=== PATIENT | male | born 1975 | race Caucasian/White ===

== ENCOUNTER 2017-10-22 10:10 | Emergency (ER) | payer OTHER ==
[~2017-10-22] VITALS: Wt 116.1 kg
[~2017-10-22 10:10] MED LIST: LIPITOR20 MG PO; LISINOPRIL10 M1 PO; MOTRIN800 MG PO; NAPROXEN500 MG PO; PANTOPRAZOLE SO40 MG PO
[2017-10-22 10:49] LABS: BASO # 0.1 10*3/uL (0.0-0.1); BASO % 0.8 % (0.0-1.0); EOS # 0.2 10*3/uL (0.0-0.4); EOS % 2.8 % (1.0-4.0); HEMATOCRIT 48.9 % (42.0-52.0); HEMOGLOBIN 16.2 g/dl (14.0-18.0); LYMPH % 32.6 % (27.0-41.0); MEAN CELL VOLUME 95.3 fl (80.0-94.0); MEAN CORPUSCULAR HGB 31.6 pg (27.0-31.0); MEAN CORPUSCULAR HGB CONC 33.1 g/dl (33.0-37.0); MEAN PLATELET VOLUME 10.4 fl (9.6-12.3); MONO # 0.7 10*3/uL (0.1-1.0); MONO % 10.7 % (3.0-9.0); NEUT # 3.2 10*3/uL (2.3-7.9); NEUT % 52.8 % (47.0-73.0); PLATELET COUNT AUTOMATED 236 10*3/uL (130-400); RED BLOOD COUNT 5.13 10*6/uL (4.50-5.90); RED CELL DISTRI WIDTH 12.3 % (0-14.5); WHITE BLOOD COUNT 6.1 10*3/uL (4.8-10.8)
[2017-10-22 10:59] LABS: ALKALINE PHOSPHATASE 82 U/L (45-117); BUN 12 mg/dl (7-24); CHLORIDE 104 mmol/L (98-107); CREATININE 0.98 mg/dL (0.70-1.30); LIPASE 163 U/L (73-393); POTASSIUM 3.9 mmol/L (3.5-5.1); SGOT/AST 25 IU/L (3-35); SGPT/ALT 39 U/L (12-78); SODIUM 138 mmol/L (136-145); TOTAL PROTEIN 7.5 gm/dL (6.4-8.2)
[2017-10-22 11:19] LABS: BILIRUBIN NEGATIVE (NEGATIVE); BLOOD TRACE-LYSED (NEGATIVE); CLARITY SL CLOUDY (CLEAR); COLOR YELLOW (YELLOW); GLUCOSE NEGATIVE (NEGATIVE); KETONE NEGATIVE (NEGATIVE); LEUKO ESTERASE 1+ (NEGATIVE); NITRITE NEGATIVE (NEGATIVE); SPECIFIC GRAVITY 1.015 (1.005-1.030); UROBILINOGEN 0.2 E.U./dl (0.2-1.0)
[2017-10-22] MEDS ORDERED: CIPRO500 MG PO (11:41)
== END 2017-10-22 11:49 | disposition home or self-care (01) ==
LOC: ED 10:10
PROVIDERS: Nurse Practitioner Family
DX: N39.0 Urinary tract infection, site not specified (principal); Z79.899 Other long term (current) drug therapy

== ENCOUNTER → 2018-04-01 | Outpatient (CLI) | payer OTHER ==
[~2018-04-01] MED LIST changes: +ASPIR LOW81 MG PO; +CIPRO500 MG PO; +PHENERGAN25 M3 PO
== END | disposition home or self-care (01) ==
LOC: RAD 09:36
DX: K44.9 Diaphragmatic hernia without obstruction or gangrene (principal); K21.0 Gastro-esophageal reflux disease with esophagitis; I10 Essential (primary) hypertension

== ENCOUNTER → 2018-07-05 | Outpatient (CLI) | payer OTHER ==
--- NOTE | ~2018-07-05 | EKG ---
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
[2018-07-05 08:30] LABS: BUN 8 mg/dl (7-24); CHLORIDE 107 mmol/L (98-107); POTASSIUM 4.2 mmol/L (3.5-5.1); SODIUM 139 mmol/L (136-145)
[2018-07-05 08:59] LABS: BASO % 0.8 % (0.0-1.0); EOS # 0.2 10*3/uL (0.0-0.4); EOS % 3.6 % (1.0-4.0); HEMATOCRIT 47.8 % (42.0-52.0); HEMOGLOBIN 15.6 g/dl (14.0-18.0); LYMPH # 1.6 10*3/uL (1.3-4.4); LYMPH % 31.1 % (27.0-41.0); MEAN CELL VOLUME 95.6 fl (80.0-94.0); MEAN CORPUSCULAR HGB 31.2 pg (27.0-31.0); MEAN CORPUSCULAR HGB CONC 32.6 g/dl (33.0-37.0); MEAN PLATELET VOLUME 10.9 fl (9.6-12.3); MONO # 0.6 10*3/uL (0.1-1.0); MONO % 10.9 % (3.0-9.0); NEUT # 2.7 10*3/uL (2.3-7.9); NEUT % 53.4 % (47.0-73.0); PLATELET COUNT AUTOMATED 230 10*3/uL (130-400); RED CELL DISTRI WIDTH 12.6 % (0-14.5); WHITE BLOOD COUNT 5.1 10*3/uL (4.8-10.8)
[2018-07-05 09:06] LABS: ACT PARTIAL THROMBO TIME 22.4 SECONDS (19.5-32.1); INTERNATIONAL NORM RATIO 0.9 (2.0-3.5)
== END | disposition home or self-care (01) ==
LOC: LAB 07:39
PROVIDERS: Specialist
DX: Z01.818 Encounter for other preprocedural examination (principal); K22.70 Barrett's esophagus without dysplasia

== ENCOUNTER 2019-10-19 10:02 | Inpatient (IN) | payer OTHER ==
[~2019-10-19] VITALS: Ht 187.9 cm; Wt 112.9 kg
[2019-10-19 10:05] VITALS: BP 145/78
[2019-10-19 10:45] LABS: BASO % 0.2 % (0.0-1.0); EOS % 0.1 % (1.0-4.0); HEMATOCRIT 49.6 % (42.0-52.0); HEMOGLOBIN 16.9 g/dl (14.0-18.0); LYMPH % 5.3 % (27.0-41.0); MEAN CELL VOLUME 94.8 fl (80.0-94.0); MEAN CORPUSCULAR HGB 32.3 pg (27.0-31.0); MEAN CORPUSCULAR HGB CONC 34.1 g/dl (33.0-37.0); MEAN PLATELET VOLUME 10.3 fl (9.6-12.3); MONO # 1.1 10*3/uL (0.1-1.0); MONO % 5.8 % (3.0-9.0); NEUT # 16.9 10*3/uL (2.3-7.9); NEUT % 88.2 % (47.0-73.0); PLATELET COUNT AUTOMATED 299 10*3/uL (130-400); RED BLOOD COUNT 5.23 10*6/uL (4.50-5.90); RED CELL DISTRI WIDTH 11.8 % (0-14.5); WHITE BLOOD COUNT 19.2 10*3/uL (4.8-10.8)
[2019-10-19 10:58] LABS: ACT PARTIAL THROMBO TIME 24.8 SECONDS (20.0-32.1)
[2019-10-19 11:01] LABS: ALBUMIN 4.1 gm/dl (3.1-4.5); ALKALINE PHOSPHATASE 88 U/L (45-117); BUN 7 mg/dl (7-24); CHLORIDE 104 mmol/L (98-107); CREATININE 0.85 mg/dL (0.70-1.30); LIPASE 75 U/L (73-393); POTASSIUM 3.8 mmol/L (3.5-5.1); SGOT/AST 21 IU/L (3-35); SGPT/ALT 51 U/L (12-78); SODIUM 136 mmol/L (136-145); TOTAL PROTEIN 8.4 gm/dL (6.4-8.2)
[2019-10-19 11:07] LABS: TROPONIN I < 0.015 ng/ml (<0.045)
--- NOTE | 2019-10-19 11:48 | NUR ---
DILAUDID GIVEN BY KENDALL LEBLANC PER VERBAL ORDER OF DR ZUNIGA.
--- NOTE | 2019-10-19 12:32 | NUR ---
KARISHMA AND THOR HELD AT THIS TIME PER DR ZUNIGA.
--- NOTE | 2019-10-19 13:12 | NUR ---
PT RESTING LAB WITH PT FOR BLOOD DRAW PT DENIES PAIN AT THIS TIME HAS NO REQUESTS AT THIS TIME
[2019-10-19 13:23] VITALS: BP 137/79
[2019-10-19 14:10] VITALS: BP 150/89
--- NOTE | 2019-10-19 14:26 | NUR ---
Time: 1409 A 44 year old MALE admitted to 4E under services of DR. RAYSA DOMINGUEZ,VAZQUEZ. Pt. arrived via stretcher from ER. Chief complaint: ABDOMINAL PAIN, ACUTE CHOLECYSTITIS. PAT FARIA
--- NOTE | 2019-10-19 14:46 | NUR ---
DR RICKETTS CONSULT- HE WAS NOTIFIED BY ER DOCTOR.
[2019-10-19 16:00] VITALS: BP 155/94
--- NOTE | 2019-10-19 18:31 | NUR ---
MEDICATION EFFECTIVE FOR PAIN AT THIS TIME PER PT. IVF INFUSING PER ORDERS. WILL MONITOR
[2019-10-19 20:00] VITALS: BP 126/73
[2019-10-20] VITALS (7 sets, daily range): BP systolic 113–138; BP diastolic 57–79
[2019-10-20 06:53] LABS: ALBUMIN 3.7 gm/dl (3.1-4.5); ALKALINE PHOSPHATASE 73 U/L (45-117); BUN 10 mg/dl (7-24); CHLORIDE 108 mmol/L (98-107); POTASSIUM 3.7 mmol/L (3.5-5.1); SGOT/AST 13 IU/L (3-35); SGPT/ALT 36 U/L (12-78); SODIUM 138 mmol/L (136-145); TOTAL PROTEIN 7.4 gm/dL (6.4-8.2)
[2019-10-20 06:56] LABS: HEMATOCRIT 47.8 % (42.0-52.0); HEMOGLOBIN 16.2 g/dl (14.0-18.0); MEAN CELL VOLUME 94.3 fl (80.0-94.0); MEAN CORPUSCULAR HGB CONC 33.9 g/dl (33.0-37.0); MEAN PLATELET VOLUME 10.6 fl (9.6-12.3); PLATELET COUNT AUTOMATED 303 10*3/uL (130-400); RED BLOOD COUNT 5.07 10*6/uL (4.50-5.90); RED CELL DISTRI WIDTH 12.3 % (0-14.5); WHITE BLOOD COUNT 14.6 10*3/uL (4.8-10.8)
[2019-10-20 07:38] LABS: TOTAL CELLS COUNTED 100 #CELLS
[2019-10-20 07:39] LABS: PLATELET SUFFICIENCY NORMAL (NORMAL)
--- NOTE | 2019-10-20 09:00 | NUR ---
Recovery Assistant in to see patient. He is not currently in his room. He is in the OR. Will follow up at a later time.
--- NOTE | 2019-10-20 11:00 | NUR ---
Women'S Apparel Salesperson in to see patient. Surgery present in his room. Will follow up at a later time.
--- NOTE | 2019-10-20 14:30 | NUR ---
DISCHARGED TO HOME.
== END 2019-10-20 14:30 | disposition home or self-care (01) | DRG 418 ==
LOC: ED 10:02 → 4E 12:32 → EDHOLD 12:32 → 4E 13:09
PROVIDERS: Emergency Medicine; ADMIT Internal Medicine
PROC: 0FT44ZZ Resection of Gallbladder, Percutaneous Endoscopic Approach (ICD-10-PCS; principal; 2019-10-20)
DX: K81.0 Acute cholecystitis (principal); E87.2 Acidosis; K31.89 Other diseases of stomach and duodenum; K21.9 Gastro-esophageal reflux disease without esophagitis; I10 Essential (primary) hypertension; K44.9 Diaphragmatic hernia without obstruction or gangrene; R73.9 Hyperglycemia, unspecified; E80.6 Other disorders of bilirubin metabolism; E83.41 Hypermagnesemia; E87.8 Other disorders of electrolyte and fluid balance, not elsewhere classified; E78.00 Pure hypercholesterolemia, unspecified; Z79.899 Other long term (current) drug therapy; Z79.82 Long term (current) use of aspirin

== ENCOUNTER 2019-10-25 17:22 | Inpatient (IN) | payer OTHER ==
[~2019-10-25] VITALS: Ht 188 cm; Wt 113.1 kg
--- NOTE | 2019-10-25 18:14 | NUR ---
PT STATES THAT HIS PAIN IS NOW A 7-8 ON A SCALE OF 1-10 AND COMES AND GOES. STATES THAT MEDICATION WAS SOMEWHAT EFFECTIVE. HE IS COMPLAINING THAT THE PAIN RADIATES TO THE LEFT AND WRAPS AROUND TO BACK.
[2019-10-25 18:43] LABS: HEMATOCRIT 52.9 % (42.0-52.0); HEMOGLOBIN 17.5 g/dl (14.0-18.0); MEAN CELL VOLUME 96.2 fl (80.0-94.0); MEAN CORPUSCULAR HGB 31.8 pg (27.0-31.0); MEAN CORPUSCULAR HGB CONC 33.1 g/dl (33.0-37.0); MEAN PLATELET VOLUME 9.8 fl (9.6-12.3); PLATELET COUNT AUTOMATED 357 10*3/uL (130-400); RED CELL DISTRI WIDTH 11.9 % (0-14.5); WHITE BLOOD COUNT 22.1 10*3/uL (4.8-10.8)
--- NOTE | 2019-10-25 18:44 | NUR ---
PT TO CAT SCAN.
[2019-10-25 19:01] LABS: ALBUMIN 3.4 gm/dl (3.1-4.5); ALKALINE PHOSPHATASE 197 U/L (45-117); BUN 10 mg/dl (7-24); CHLORIDE 107 mmol/L (98-107); CREATININE 1.03 mg/dL (0.70-1.30); POTASSIUM 3.2 mmol/L (3.5-5.1); SGOT/AST 347 IU/L (3-35); SGPT/ALT 405 U/L (12-78); SODIUM 139 mmol/L (136-145); TOTAL PROTEIN 8.1 gm/dL (6.4-8.2)
[2019-10-25 19:03] LABS: TROPONIN I < 0.015 ng/ml (<0.045)
--- NOTE | 2019-10-25 19:10 | NUR ---
PT CONTINUES TO COMPLAIN OF ABD PAIN 03/01, PROVIDER NOTIFIED. URINAL PROVIDED AND PT AWARE URINE NEEDED FOR COLLECTION. CALL LIGHT IN REACH. WILL CONTINUE TO MONITOR.
[2019-10-25 19:11] VITALS: BP 169/89
[2019-10-25 19:11] LABS: LIPASE > 1500 U/L (73-393)
[2019-10-25 19:14] LABS: PLATELET SUFFICIENCY NORMAL (NORMAL); TOTAL CELLS COUNTED 100 #CELLS
--- NOTE | 2019-10-25 20:09 | NUR ---
UPDATED PT SPOUSE PER PT REQUEST ON STATUS AND PLAN TO ADMIT
[2019-10-25 20:26] VITALS: BP 161/89
[2019-10-25 21:08] VITALS: BP 172/68
--- NOTE | 2019-10-25 21:08 | NUR ---
Time: 2107 A 44 year old MALE admitted to 4E under services of DR. RAYSA DOMINGUEZ,VAZQUEZ. Pt. arrived via stretcher from ER. Chief complaint: ABDOMINAL PAIN. MARIE DAWSON
--- NOTE | 2019-10-25 21:43 | NUR ---
PRN IV DILAUDID GIVEN AT THIS TIME FOR 10/10 PAIN IN ABDOMEN. A&OX3.
--- NOTE | 2019-10-25 22:40 | NUR ---
PATIENT RESTING IN A POSITION OF COMFORT IN BED WITH EYES CLOSED AT THIS TIME, NO SIGNS OR SYMPTOMS OF PAIN NOTED, IV FLUIDS INFUSING WITHOUT INCIDENT AT THIS TIME. WILL CONTINUE TO MONITOR, CALL LIGHT WITHIN REACH.
[2019-10-26] VITALS: BP 179/95
--- NOTE | 2019-10-26 01:50 | NUR ---
PRN IV DILAUDID GIVEN AT THIS TIME FOR 7/10 MIDEPIGASTRIC ABDOMINAL PAIN. A&O X3. CALL LIGHT WITHIN REACH.
--- NOTE | 2019-10-26 02:10 | NUR ---
CLEAN CATCH URINE COLLECTED AND SENT TO LAB FOR UA REFLEX TO ORDER
[2019-10-26 02:13] LABS: BILIRUBIN NEGATIVE (NEGATIVE); BLOOD NEGATIVE (NEGATIVE); CLARITY CLEAR (CLEAR); COLOR YELLOW (YELLOW); GLUCOSE NEGATIVE (NEGATIVE); KETONE 2+ (NEGATIVE); NITRITE NEGATIVE (NEGATIVE); SPECIFIC GRAVITY 1.015 (1.005-1.030); UROBILINOGEN 0.2 E.U./dl (0.2-1.0)
[2019-10-26 02:14] LABS: LEUKO ESTERASE NEGATIVE (NEGATIVE)
--- NOTE | 2019-10-26 02:40 | NUR ---
PATIENT RATING PAIN AT A 4/10 AT THIS TIME AFTER PRN IV DILAUDID WAS GIVEN. A&0X3
--- NOTE | 2019-10-26 05:42 | NUR ---
PRN IV DILUADID GIVEN AT THIS TIME FOR 8/10 ABDOMINAL PAIN. A&OX3,CALL LIGHT WITHIN REACH, WILL CONTINUE TO MONITOR.
--- NOTE | 2019-10-26 06:15 | NUR ---
PATIENT STATED THAT HIS PAIN HAD IMPROVED TO A 5/10 AFTER PRN IV DILAUDID WAS GIVEN. A&OX3, CALL LIGHT WITHIN REACH.
[2019-10-26 06:16] LABS: HEMATOCRIT 51.5 % (42.0-52.0); HEMOGLOBIN 17.4 g/dl (14.0-18.0); MEAN CELL VOLUME 95.2 fl (80.0-94.0); MEAN CORPUSCULAR HGB 32.2 pg (27.0-31.0); MEAN CORPUSCULAR HGB CONC 33.8 g/dl (33.0-37.0); MEAN PLATELET VOLUME 10.3 fl (9.6-12.3); PLATELET COUNT AUTOMATED 276 10*3/uL (130-400); RED BLOOD COUNT 5.41 10*6/uL (4.50-5.90); RED CELL DISTRI WIDTH 12.4 % (0-14.5); WHITE BLOOD COUNT 23.4 10*3/uL (4.8-10.8)
[2019-10-26 06:52] LABS: ALBUMIN 3.2 gm/dl (3.1-4.5); ALKALINE PHOSPHATASE 161 U/L (45-117); BUN 12 mg/dl (7-24); CHLORIDE 108 mmol/L (98-107); CREATININE 0.86 mg/dL (0.70-1.30); SGOT/AST 105 IU/L (3-35); SGPT/ALT 271 U/L (12-78); SODIUM 139 mmol/L (136-145); TOTAL PROTEIN 7.1 gm/dL (6.4-8.2)
[2019-10-26 06:54] LABS: LIPASE 5724 U/L (73-393); POTASSIUM 4.4 mmol/L (3.5-5.1)
[2019-10-26 07:34] LABS: PLATELET SUFFICIENCY NORMAL (NORMAL); TOTAL CELLS COUNTED 100 #CELLS
[2019-10-26 08:00] VITALS: BP 132/98
--- NOTE | 2019-10-26 08:26 | NUR ---
24 HR chart check completed.
--- NOTE | 2019-10-26 09:26 | NUR ---
RESTING WITH EYES CLOSED. UPON ENTERING ROOM, PATIENT C/O MID ABD PAIN RATING A 5 - REQUESTED AND RECEIVED DILAUDID PER PRN ORDER. RESPIRATIONS EASY. LUNGS DIMINISHED, CLEAR. PULSE OX 93% RA. ABD SOFT WITH HYPO BS. 4 SURGICAL SITES NOTED TO BE ECCHYMOTIC WITH GLUE INTACT. IV FLUIDS INFUSING PER ORDER. CALL LIGHT WITHIN REACH. WILL MONITOR
--- NOTE | 2019-10-26 10:10 | NUR ---
MEDS APPEAR EFFECTIVE, SLEEPING
--- NOTE | 2019-10-26 10:30 | NUR ---
DR CARRINGTON HERE TO ASSESS PATIENT AND DISCUSS PLAN OF CARE
[2019-10-26 12:00] VITALS: BP 142/88
--- NOTE | 2019-10-26 13:18 | NUR ---
REQUESTED AND RECEIVED DILAUDID IV PER PRN ORDER FOR COMPLAINTS OF ABD PAIN RATING A 3. CALL LIGHT WITHIN REACH. WILL MONITOR
--- NOTE | 2019-10-26 14:00 | NUR ---
MEDS EFFECTIVE. RESTING WITH EYES CLOSED. RESPIRATIONS EASY. IV FLUIDS MAINTAINED
[2019-10-26 16:00] VITALS: BP 142/92
--- NOTE | 2019-10-26 16:20 | NUR ---
BP ELEVATED 142/92, MEDICATED WITH LISINOPRIL WITH SIP OF WATER
--- NOTE | 2019-10-26 17:30 | NUR ---
DR VENTURA CONTACTED REGARDING CONSULT, NEW ORDERS RECEIVED. WILL SEE PATIENT TOMORROW
--- NOTE | 2019-10-26 19:15 | NUR ---
REQUESTED AND RECEIVED DILAUDID IV PER PRN ORDER FOR COMPLAINTS OF ABD PAIN RATING A 7. CALL LIGHT WITHIN REACH. WILL MONITOR
[2019-10-26 20:00] VITALS: BP 120/75
--- NOTE | 2019-10-26 20:30 | NUR ---
DR. TABARES CONTACTED AT THIS TIME FOR ORDERS TO CONTINUE IV DILAUDID FOR PAIN AND NORMAL SALINE INFUSION, ORDERS RECEIVED.
--- NOTE | 2019-10-26 20:53 | NUR ---
DR. TABARES CONTACTED AT THIS TIME IN REFERENCE TO PATIENT BEING TACHYCARDIC 120-130'S, ORDERS RECEIVED TO PLACE PATIENT ON RACE STARTER AT THIS TIME AND TO WATCH PATIENT HE FEELS THAT THIS MAY BE RELATED TO THE PAIN PATIENT IS HAVING FROM HIS CURRENT DIAGNOSIS. DRAFTER APPRENTICE NOTIFIED, AWAITING MONITOR.
--- NOTE | 2019-10-26 21:17 | NUR ---
PATIENT PLACED ON MONITOR AT THIS TIME, DENIES CHEST PAIN/PRESSURE, SHORTNESS OF BREATH, HEADACHE, NAUSEA, OR DIZZINESS AT THIS TIME. STATED THAT "OTHER THAN THE PAIN IN HIS ABDOMEN HE FEELS OKAY", A&OX3, CALL LIGHT WITHIN REACH WILL CONTINUE TO MONITOR.
[2019-10-26 23:17] VITALS: BP 112/78
--- NOTE | 2019-10-26 23:18 | NUR ---
DILAUDID GIVEN PER PATIENT REQUEST FOR COMPLAINTS OF PAIN LOCATED IN ABDOMEN RATED 7/10. WILL ASSESS EFFECTIVENESS.
[2019-10-27] VITALS: BP 111/74
--- NOTE | 2019-10-27 | NUR ---
PATIENT RESTING IN A POSITION OF COMFORT IN BED, NO SIGNS OR SYMPTOMS OF DISTRESS NOTED AT THIS TIME, PRN DILAUDID EFFECTIVE.
--- NOTE | 2019-10-27 03:08 | NUR ---
PRN IV DILAUDID GIVEN AT THIS TIME FOR 7/10 ABDOMINAL PAIN, A&O X3, CALL LIGHT WITHIN REACH WILL CONTINUE TO MONITOR.
--- NOTE | 2019-10-27 04:00 | NUR ---
PATIENT STATED THAT PAIN WAS NOW A 5/10 AFTER PRN IV DILAUDID WAS ADMINISTERED. A&OX3, CALL LIGHT WITHIN REACH.
[2019-10-27 06:22] LABS: ALBUMIN 2.6 gm/dl (3.1-4.5); ALKALINE PHOSPHATASE 133 U/L (45-117); CHLORIDE 111 mmol/L (98-107); CREATININE 1.34 mg/dL (0.70-1.30); POTASSIUM 4.8 mmol/L (3.5-5.1); SGOT/AST 68 IU/L (3-35); SGPT/ALT 158 U/L (12-78); SODIUM 140 mmol/L (136-145); TOTAL PROTEIN 6.2 gm/dL (6.4-8.2)
[2019-10-27 06:28] LABS: BUN 28 mg/dl (7-24); LIPASE 5018 U/L (73-393)
--- NOTE | 2019-10-27 07:51 | NUR ---
Assisted patient to cart for transport to MRI. Patient was very uncomfortable during the transfer. IV disconnected and cardiac monitor and ECG electrodes removed. Per request of Suzan, notified her that patient was taken to MRI.
[2019-10-27 08:00] VITALS: BP 123/75
--- NOTE | 2019-10-27 09:05 | NUR ---
Patient medicated with Dilaudid for c/o LQ abdominal pain rated 7/10. Will monitor.
--- NOTE | 2019-10-27 09:07 | NUR ---
Dilaudid effective. Patients states "I feel it working, and its making me sleep." Patient comfortable with respirations <12.
--- NOTE | 2019-10-27 09:19 | NUR ---
Spoke with regarding patients NPO status. Was instructed to give patient Jello and see how he tolerates it. See new orders.
--- NOTE | 2019-10-27 10:50 | NUR ---
Received a call from [place] stating patients heart rate was up to 144. When I assessed patient he had ambulated to toilet. He stated he was not symptomatic. His only complaint was abdominal pain. Notified of increase heart rate. He stated "it was ok." No new orders. Will continue to monitor.
--- NOTE | 2019-10-27 11:44 | NUR ---
Ice Carver in to talk to patient. Patient states lives at HOME with . There are 10 steps in the home. Physician: RAYSA Pharmacy: [facility]: NONE Patient's level of ADLs: INDEPENDENT Patient has working utilities: YES DME: NONE Follow-up physician's appointment after d/c: PREFERS TO MAKE OWN AFTER DISCHARGE Does patient want to access PORTAL?: NO Discharge plan PT LIVES AT HOME WITH HIS AND IS INDEPENDENT IN HIS CARE. DENIES HE WILL HAVE NEEDS ON DISCHARGE. PLAN IS TO RETURN HOME WITH WHEN MEDCIALLY STABLE. WILL CONTINUE TO FOLLOW. STATES WILL TRANSPORT HIM HOME ON DISCHARGE.. TAM SCHILLING
--- NOTE | 2019-10-27 12:39 | NUR ---
At bedside with and . Patient in aggrement with assessing improvement next 24 hours and if no improvement be transferred out. Called Suzan @ [phone] with update. Patient comfortable.
--- NOTE | 2019-10-27 14:35 | NUR ---
Loss of IV site. Patient is an extremely hard stick. He stated he has been stuck over 10times and multiple bruises are visable. Contacted ER dept for assistance with doppler. RN to follow up as soon as doppler is available, being used by physician at this time.
[2019-10-27 16:00] VITALS: BP 136/83
--- NOTE | 2019-10-27 16:10 | NUR ---
ER nurse attempted 3x to gain IV access which were unsucessful.
--- NOTE | 2019-10-27 16:20 | NUR ---
Notified of loss of IV access. Per physician we must get access. States if need be a mid-line or picc may be placed.
--- NOTE | 2019-10-27 16:35 | NUR ---
Called nursing lieutenant shift supervisor to see what staff is available to place a PICC or midline.
--- NOTE | 2019-10-27 16:36 | NUR ---
Notified of loss of IV access. Per physician a resident should be available.
--- NOTE | 2019-10-27 17:00 | NUR ---
Dr. Broderick called to check status of IV access. Stated that PICK UP OPERATOR's are available and can place central lines if neccessary.
--- NOTE | 2019-10-27 17:15 | NUR ---
DEANA Mahajan placed 20 G in Left AC with doppler.
--- NOTE | 2019-10-27 19:20 | NUR ---
24 HR chart check completed.
[2019-10-27 20:00] VITALS: BP 129/97
--- NOTE | 2019-10-27 20:00 | NUR ---
RESTLESS, REQUESTING PAIN MEDS. MED ADMINISTRATION TIMES REVIEWED. RESPIRATIONS EASY. LUNGS DIMINISHED, CLEAR. PULSE OX 94% RA. ABD SOFTLY OBESE WITH NORMO BOWEL SOUNDS, DENIES N/V/D. 4 SURGICAL SITES NOTED TO BE ECCHYMOTIC WITH GLUE INTACT. IV FLUIDS INFUSING PER ORDER. CALL LIGHT WITHIN REACH.
--- NOTE | 2019-10-27 21:18 | NUR ---
REQUESTED AND RECEIVED DILAUDID IV PER PRN ORDER FOR COMPLAINTS OF MID ABD PAIN RATING A 7. CALL LIGHT WITHIN REACH. WILL MONITOR
--- NOTE | 2019-10-27 22:00 | NUR ---
MEDS EFFECTIVE. SLEEPING
[2019-10-28] VITALS: BP 125/74
--- NOTE | 2019-10-28 | NUR ---
RESTING WITH EYES CLOSED. RESPIRATIONS EASY. VSS. IV FLUIDS MAINTAINED. CALL LIGHT WITHIN REACH
--- NOTE | 2019-10-28 01:46 | NUR ---
REQUESTED AND RECEIVED DILAUDID IV PER PRN ORDER FOR COMPLAINTS OF BACK PAIN RATING A 6. IV FLUIDS MAINTAINED. CALL LIGHT WITHIN REACH. WILL MONITOR
--- NOTE | 2019-10-28 03:00 | NUR ---
MEDS APPEAR EFFECTIVE, SLEEPING.
--- NOTE | 2019-10-28 05:50 | NUR ---
REQUESTED AND RECEIVED DILAUDID IV PER PRN ORDER FOR COMPLAINTS OF ABD AND BACK PAIN RATING AN 8. CALL LIGHT WITHIN REACH. WILL MONITOR FOR EFFECTIVENESS
--- NOTE | 2019-10-28 05:50 | NUR ---
CALLED TO PATIENT ROOM, IV SITE INFILTRATED. SITE PULLED AND WARM COMPRESS APPLIED. NEW IV SITE OBTAINED
[2019-10-28 06:17] LABS: HEMATOCRIT 41.2 % (42.0-52.0); HEMOGLOBIN 13.6 g/dl (14.0-18.0); MEAN CELL VOLUME 98.1 fl (80.0-94.0); MEAN CORPUSCULAR HGB 32.4 pg (27.0-31.0); MEAN PLATELET VOLUME 11.2 fl (9.6-12.3); PLATELET COUNT AUTOMATED 266 10*3/uL (130-400); RED CELL DISTRI WIDTH 13.2 % (0-14.5); WHITE BLOOD COUNT 25.9 10*3/uL (4.8-10.8)
--- NOTE | 2019-10-28 06:30 | NUR ---
MEDS APPEAR EFFECTIVE. SLEEPING. RESPIRATIONS EASY. IV FLUIDS MAINTAINED. CALL LIGHT WITHIN REACH
[2019-10-28 07:10] LABS: PLATELET SUFFICIENCY NORMAL (NORMAL); TOTAL CELLS COUNTED 100 #CELLS
--- NOTE | 2019-10-28 09:44 | NUR ---
Dilaudid given per patient request for c/o lower back rated 6/10. Will monitor.
--- NOTE | 2019-10-28 10:15 | NUR ---
Dilaudid effective. Patient asleep with respirations >12.
--- NOTE | 2019-10-28 10:20 | NUR ---
PT CONTINUES TO DENY NEEDS AT HOME ON DISCHARGE. WILL CONTINUE TO FOLLOW.
[2019-10-28 10:58] LABS: ALBUMIN 2.2 gm/dl (3.1-4.5); BUN 19 mg/dl (7-24); CHLORIDE 109 mmol/L (98-107); CREATININE 0.92 mg/dL (0.70-1.30); SGOT/AST 52 IU/L (3-35); SGPT/ALT 81 U/L (12-78); SODIUM 138 mmol/L (136-145); TOTAL PROTEIN 5.9 gm/dL (6.4-8.2)
[2019-10-28 11:01] LABS: ALKALINE PHOSPHATASE 104 U/L (45-117); POTASSIUM 3.7 mmol/L (3.5-5.1)
--- NOTE | 2019-10-28 11:32 | NUR ---
Called to verify order for Mid line insertion. See new orders.
[2019-10-28 12:00] VITALS: BP 151/55
--- NOTE | 2019-10-28 14:20 | NUR ---
Dilaudid given per patient request for c/o back pain. Patient displaying physical signs of distress. Educated patient that Dilaudid put him at risk of constipation. Encouraged ambulation and fluid intake.
--- NOTE | 2019-10-28 14:45 | NUR ---
Dilaudid effective. Patient asleep with respirations >12.
[2019-10-28 16:00] VITALS: BP 132/77
--- NOTE | 2019-10-28 17:06 | NUR ---
Per request of Cindy in CT I called to confirm if the pelvis is to be included and if oral contrast given. Per physician CT of abdomen only and oral contrast to be given. Relayed the message to Cindy [phone].
--- NOTE | 2019-10-28 17:40 | NUR ---
Spoke with regarding patients temperature. See vitals. Dr. Carranza to contact .
--- NOTE | 2019-10-28 17:44 | NUR ---
After consulting with was instructed by to contact ID. Message left with answering service.
--- NOTE | 2019-10-28 18:10 | NUR ---
Dilaudid given per patient request for c/o back pain. Will monitor.
--- NOTE | 2019-10-28 18:20 | NUR ---
Dilaudid effective. Patient asleep with respirations >12.
--- NOTE | 2019-10-28 18:54 | NUR ---
returned call. Per physician hold IV tylenol because it could be masking a temperature. If temp spikes to 101-102 then blood cultures to be drawn and IV tylenol given to control temp. Will pass on nurse to nurse report.
[2019-10-28 20:00] VITALS: BP 145/72
--- NOTE | 2019-10-28 20:30 | NUR ---
RESTING IN BED WITH NO DISTRESS NOTED. RESPIRATIONS EASY. LUNGS DIMINISHED, CLEAR. PULSE OX 94% RA. ABD SOFTLY DISTENDED WITH HYPO BOWEL SOUNDS, DENIES N/V/D. 4 SURGICAL SITES NOTED ECCHYMOTIC WITH GLUE INTACT. IV FLUIDS INFUSING PER ORDER. CALL LIGHT WITHIN REACH. NO VOICED COMPLAINTS
--- NOTE | 2019-10-28 21:48 | NUR ---
24 HR chart check completed.
--- NOTE | 2019-10-28 22:09 | NUR ---
REQUESTED AND RECEIVED DILAUDID IV PER PRN ORDER FOR COMPLAINTS OF LOWER BACK PAIN RATING A 6. CALL LIGHT WITHIN REACH. WILL MONITOR FOR EFFECTIVENESS
[2019-10-29] VITALS: BP 150/80
--- NOTE | 2019-10-29 | NUR ---
RESTING IN BED. RESPIRATIONS EASY. IV FLUIDS MAINTAINED
--- NOTE | 2019-10-29 02:02 | NUR ---
REQUESTED AND RECEIVED DILAUDID IV PER PRN ORDER FOR COMPLAINTS OF RIGHT FLANK PAIN RATING A 6. CALL LIGHT WITHIN REACH. WILL MONITOR
--- NOTE | 2019-10-29 03:00 | NUR ---
MEDS EFFECTIVE. SLEEPING
[2019-10-29 04:00] VITALS: BP 154/77
[2019-10-29 06:05] LABS: HEMOGLOBIN 11.6 g/dl (14.0-18.0); MEAN CORPUSCULAR HGB 32.1 pg (27.0-31.0); MEAN CORPUSCULAR HGB CONC 33.1 g/dl (33.0-37.0); PLATELET COUNT AUTOMATED 264 10*3/uL (130-400); RED BLOOD COUNT 3.61 10*6/uL (4.50-5.90); RED CELL DISTRI WIDTH 13.2 % (0-14.5)
--- NOTE | 2019-10-29 06:19 | NUR ---
AM MEDS GIVEN. CT PREP INITIATED. REQUESTED AND RECEIVED DILAUDID IV PER PRN ORDER FOR COMPLAINTS OF LEFT FLANK PAIN RATING A 6. CALL LIGHT WITHIN REACH. WILL MONITOR
[2019-10-29 06:34] LABS: ALBUMIN 2.1 gm/dl (3.1-4.5); ALKALINE PHOSPHATASE 107 U/L (45-117); BUN 13 mg/dl (7-24); CHLORIDE 104 mmol/L (98-107); CREATININE 0.86 mg/dL (0.70-1.30); LIPASE 884 U/L (73-393); POTASSIUM 3.7 mmol/L (3.5-5.1); SGOT/AST 44 IU/L (3-35); SGPT/ALT 69 U/L (12-78); SODIUM 138 mmol/L (136-145); TOTAL PROTEIN 5.9 gm/dL (6.4-8.2)
--- NOTE | 2019-10-29 06:55 | NUR ---
MEDS EFFECTIVE, SLEEPING
[2019-10-29 07:28] LABS: BURR CELLS FEW; PLATELET SUFFICIENCY NORMAL (NORMAL); TOTAL CELLS COUNTED 100 #CELLS
[2019-10-29 07:29] LABS: POLYCHROMASIA SLIGHT; TARGET CELLS FEW
--- NOTE | 2019-10-29 07:38 | NUR ---
PATIENT TAKEN TO CT PER ORDER.
--- NOTE | 2019-10-29 07:59 | NUR ---
PT RETURNED TO ROOM FROM SCHEDULED CT.
[2019-10-29 08:00] VITALS: BP 172/80
--- NOTE | 2019-10-29 08:10 | NUR ---
PATIENT RESTING QUIETLY IN BED. EARLIER PAIN MEDICATION EFFECTIVE PER PT. IVF MAINTAINED PER ORDER. WILL CONTINUE TO MONITOR. CALL LIGHT WITHIN REACH.
[2019-10-29 10:06] VITALS: BP 154/89
--- NOTE | 2019-10-29 10:06 | NUR ---
PT MEDICATED WITH IV DILAUDID SLOWLY PER PRN ORDER FOR C/O LEFT SIDED ABD PAIN. RATES PAIN 01/29. WILL MONITOR EFFECTIVENESS.
--- NOTE | 2019-10-29 10:55 | NUR ---
IN TO SEE PATIENT.
--- NOTE | 2019-10-29 11:00 | NUR ---
PAIN BEING RELIEVED PER PT. WILL CONTINUE TO MONITOR.
[2019-10-29 12:00] VITALS: BP 160/84
[2019-10-29 16:00] VITALS: BP 122/90
--- NOTE | 2019-10-29 16:26 | NUR ---
IN TO SEE PATIENT.
--- NOTE | 2019-10-29 17:30 | NUR ---
CALLED AT THIS TIME. PATIENT TO BE TRANSFERED TO [facility] PER . WAITING FOR ACCEPTANCE.
--- NOTE | 2019-10-29 18:02 | NUR ---
[facility] CALLED REGARDING CT RESULTS AND 'S PHONE NUMBER GIVEN TO RELAY RESULTS TO HIM.
--- NOTE | 2019-10-29 18:03 | NUR ---
SPOKE WITH [facility] REGARDING TRANSFER. WAITING FOR AUTH AT THIS TIME.
--- NOTE | 2019-10-29 18:03 | NUR ---
TRANSFER PAPERWORK SIGNED AT THIS TIME BY PATIENT'S .
--- NOTE | 2019-10-29 18:05 | NUR ---
THIS NURSE SPOKE WITH REGARDING TYLENOL ADMINISTRATION. OKAY TO GIVE 650 PO TYLENOL NOW. WILL MONITOR EFFECTIVENESS.
--- NOTE | 2019-10-29 18:48 | NUR ---
REP0RT GIVEN TO NURSE AT [facility].
--- NOTE | 2019-10-29 19:22 | NUR ---
SHIRIN HERE TO TRANSPORT PATIENT TO [facility] FOR SEVERE PANCREATITIS.
== END 2019-10-29 19:22 | disposition short-term general hospital (02) | DRG 439 ==
LOC: ED 17:22 → 4E 20:12 → EDHOLD 20:12 → 4E 20:46
PROVIDERS: Internal Medicine; Physician Assistant; ADMIT Internal Medicine
DX: K85.90 Acute pancreatitis without necrosis or infection, unspecified (principal); R65.10 Systemic inflammatory response syndrome (SIRS) of non-infectious origin without acute organ dysfunction; K55.9 Vascular disorder of intestine, unspecified; E80.6 Other disorders of bilirubin metabolism; R79.89 Other specified abnormal findings of blood chemistry; N20.0 Calculus of kidney; K21.9 Gastro-esophageal reflux disease without esophagitis; K44.9 Diaphragmatic hernia without obstruction or gangrene; Z90.49 Acquired absence of other specified parts of digestive tract; Z79.899 Other long term (current) drug therapy; Z82.49 Family history of ischemic heart disease and other diseases of the circulatory system; Z80.3 Family history of malignant neoplasm of breast; Z83.6 Family history of other diseases of the respiratory system

== ENCOUNTER → 2019-12-29 | Outpatient (CLI) | payer OTHER | END | disposition home or self-care (01) | LOC: RAD 15:23 | DX: Z01.818 Encounter for other preprocedural examination (principal); N20.0 Calculus of kidney ==

== ENCOUNTER → 2019-12-30 | Outpatient (CLI) | payer OTHER ==
[2019-12-30 16:35] LABS: BASO % 0.2 % (0.0-1.0); EOS # 0.2 10*3/uL (0.0-0.4); EOS % 3.5 % (1.0-4.0); HEMATOCRIT 42.2 % (42.0-52.0); LYMPH # 1.2 10*3/uL (1.3-4.4); LYMPH % 28.2 % (27.0-41.0); MEAN CELL VOLUME 97.2 fl (80.0-94.0); MEAN CORPUSCULAR HGB 31.3 pg (27.0-31.0); MEAN CORPUSCULAR HGB CONC 32.2 g/dl (33.0-37.0); MEAN PLATELET VOLUME 11.4 fl (9.6-12.3); MONO # 0.5 10*3/uL (0.1-1.0); MONO % 12.2 % (3.0-9.0); NEUT # 2.4 10*3/uL (2.3-7.9); NEUT % 55.9 % (47.0-73.0); PLATELET COUNT AUTOMATED 161 10*3/uL (130-400); RED BLOOD COUNT 4.34 10*6/uL (4.50-5.90); RED CELL DISTRI WIDTH 13.2 % (0-14.5); WHITE BLOOD COUNT 4.3 10*3/uL (4.8-10.8)
[2019-12-30 16:36] LABS: BILIRUBIN 1+ (NEGATIVE); BLOOD TRACE-LYSED (NEGATIVE); CLARITY SL CLOUDY (CLEAR); COLOR YELLOW (YELLOW); GLUCOSE NEGATIVE (NEGATIVE); KETONE NEGATIVE (NEGATIVE); LEUKO ESTERASE 1+ (NEGATIVE); NITRITE NEGATIVE (NEGATIVE); UROBILINOGEN 0.2 E.U./dl (0.2-1.0)
[2019-12-30 16:38] LABS: BACTERIA 2+; CALCIUM OXALATE CRYSTALS 1+; MUCOUS 2+; WBC 31-40 wbc/hpf (0-5)
[2019-12-30 17:02] LABS: ALBUMIN 3.6 gm/dl (3.1-4.5); ALKALINE PHOSPHATASE 146 U/L (45-117); BUN 9 mg/dl (7-24); CHLORIDE 110 mmol/L (98-107); CREATININE 0.59 mg/dL (0.70-1.30); POTASSIUM 3.7 mmol/L (3.5-5.1); SGOT/AST 8 IU/L (3-35); SGPT/ALT 30 U/L (12-78); SODIUM 140 mmol/L (136-145); TOTAL PROTEIN 7.3 gm/dL (6.4-8.2)
== END | disposition home or self-care (01) ==
LOC: LAB 15:18
PROVIDERS: Specialist
DX: Z01.818 Encounter for other preprocedural examination (principal); N20.0 Calculus of kidney

== ENCOUNTER → 2020-02-10 | Outpatient (CLI) | payer OTHER | END | disposition home or self-care (01) | LOC: LAB 14:02 | DX: Z01.818 Encounter for other preprocedural examination (principal); N20.0 Calculus of kidney ==

== ENCOUNTER → 2020-04-16 | Outpatient (CLI) | payer OTHER ==
[2020-04-16 10:03] LABS: ALBUMIN 4.1 gm/dl (3.1-4.5); ALKALINE PHOSPHATASE 150 U/L (45-117); BUN 16 mg/dl (7-24); CHLORIDE 108 mmol/L (98-107); CREATININE 0.79 mg/dL (0.70-1.30); SGOT/AST 41 IU/L (3-35); SGPT/ALT 94 U/L (12-78); SODIUM 139 mmol/L (136-145); TOTAL PROTEIN 7.9 gm/dL (6.4-8.2)
== END | disposition home or self-care (01) ==
LOC: LAB 09:10
PROVIDERS: ATTEND Internal Medicine
DX: E08.9 Diabetes mellitus due to underlying condition without complications (principal)

== ENCOUNTER → 2020-06-18 | Outpatient (CLI) | payer OTHER ==
[2020-06-18 09:21] LABS: BASO % 0.7 % (0.0-1.0); EOS # 0.1 10*3/uL (0.0-0.4); HEMATOCRIT 46.2 % (42.0-52.0); LYMPH # 1.3 10*3/uL (1.3-4.4); LYMPH % 29.4 % (27.0-41.0); MEAN CELL VOLUME 92.8 fl (80.0-94.0); MEAN CORPUSCULAR HGB 29.7 pg (27.0-31.0); MEAN PLATELET VOLUME 11.1 fl (9.6-12.3); MONO # 0.4 10*3/uL (0.1-1.0); NEUT # 2.6 10*3/uL (2.3-7.9); NEUT % 57.7 % (47.0-73.0); PLATELET COUNT AUTOMATED 118 10*3/uL (130-400); RED BLOOD COUNT 4.98 10*6/uL (4.50-5.90); RED CELL DISTRI WIDTH 12.6 % (0-14.5); WHITE BLOOD COUNT 4.4 10*3/uL (4.8-10.8)
[2020-06-18 09:45] LABS: BUN 11 mg/dl (7-24); CHLORIDE 108 mmol/L (98-107); POTASSIUM 3.9 mmol/L (3.5-5.1); SODIUM 141 mmol/L (136-145)
== END | disposition home or self-care (01) ==
LOC: LAB 08:38
PROVIDERS: ATTEND Specialist
DX: Z01.818 Encounter for other preprocedural examination (principal); K22.70 Barrett's esophagus without dysplasia

== ENCOUNTER → 2020-12-30 | Outpatient (CLI) | payer OTHER | END | disposition home or self-care (01) | LOC: US 07:03 | PROVIDERS: ATTEND Specialist | DX: N20.0 Calculus of kidney (principal); N28.9 Disorder of kidney and ureter, unspecified ==

== ENCOUNTER → 2021-03-18 | Outpatient (CLI) | payer OTHER | END | disposition home or self-care (01) | LOC: US 06:59 | PROVIDERS: ATTEND Internal Medicine | DX: D73.4 Cyst of spleen (principal); N28.89 Other specified disorders of kidney and ureter; N20.0 Calculus of kidney ==

== ENCOUNTER 2021-03-25 14:40 | Emergency (ER) | payer OTHER ==
[~2021-03-25] VITALS: Ht 187.9 cm; Wt 100.2 kg
[2021-03-25 15:31] LABS: BASO % 0.8 % (0.0-1.0); EOS # 0.1 10*3/uL (0.0-0.4); EOS % 2.3 % (1.0-4.0); HEMATOCRIT 47.7 % (42.0-52.0); LYMPH # 1.4 10*3/uL (1.3-4.4); MEAN CELL VOLUME 91.4 fl (80.0-94.0); MEAN CORPUSCULAR HGB 30.1 pg (27.0-31.0); MEAN CORPUSCULAR HGB CONC 32.9 g/dl (33.0-37.0); MEAN PLATELET VOLUME 10.6 fl (9.6-12.3); MONO # 0.5 10*3/uL (0.1-1.0); MONO % 9.5 % (3.0-9.0); NEUT # 3.2 10*3/uL (2.3-7.9); PLATELET COUNT AUTOMATED 136 10*3/uL (130-400); RED BLOOD COUNT 5.22 10*6/uL (4.50-5.90); RED CELL DISTRI WIDTH 13.1 % (0-14.5); WHITE BLOOD COUNT 5.2 10*3/uL (4.8-10.8)
[2021-03-25 15:35] LABS: BILIRUBIN Negative (Negative); BLOOD Negative (Negative); CLARITY Clear (Clear); COLOR Yellow (Yellow); GLUCOSE 3+ (Negative); KETONE Negative (Negative); LEUKO ESTERASE Negative (Negative); NITRITE Negative (Negative); PH 5.5 (4.5-8.0); SPECIFIC GRAVITY >= 1.030 (1.001-1.030)
[2021-03-25 15:44] LABS: ALKALINE PHOSPHATASE 123 U/L (45-117); BUN 9 mg/dl (7-24); CHLORIDE 106 mmol/L (98-107); CREATININE 0.68 mg/dL (0.70-1.30); LIPASE 90 U/L (73-393); POTASSIUM 3.8 mmol/L (3.5-5.1); SGOT/AST 14 IU/L (3-35); SGPT/ALT 35 U/L (12-78); SODIUM 140 mmol/L (136-145); TOTAL PROTEIN 7.7 gm/dL (6.4-8.2)
[2021-03-25 16:09] LABS: EPITHELIAL CELLS 0-2; RBC 0-2 rbc/hpf (0-2); WBC 0-2 wbc/hpf (0-5)
== END 2021-03-26 01:30 | disposition left against medical advice (07) ==
LOC: ED 14:40
PROVIDERS: Emergency Medicine
DX: K86.3 Pseudocyst of pancreas (principal); K85.90 Acute pancreatitis without necrosis or infection, unspecified; N20.0 Calculus of kidney; Z79.899 Other long term (current) drug therapy

== ENCOUNTER → 2022-01-28 | Outpatient (CLI) | payer OTHER | END | disposition home or self-care (01) | LOC: LAB 07:23 | PROVIDERS: ATTEND Internal Medicine | DX: E08.9 Diabetes mellitus due to underlying condition without complications (principal) ==

== ENCOUNTER → 2022-05-03 | Outpatient (CLI) | payer OTHER ==
[2022-05-03 08:49] LABS: CHOLESTEROL 70 mg/dL (<200); LDL CHOLESTEROL 22 mg/dL (9-159); TRIGLYCERIDES 93 mg/dl (<150)
== END ==
LOC: LAB 07:50
PROVIDERS: ATTEND Internal Medicine
DX: E78.5 Hyperlipidemia, unspecified (principal)

== ENCOUNTER → 2024-03-21 | Outpatient (CLI) | payer OTHER ==
[2024-03-21 14:55] LABS: BASO % 0.6 % (0.0-1.0); EOS # 0.1 10*3/uL (0.0-0.4); EOS % 1.7 % (1.0-4.0); HEMATOCRIT 48.1 % (42.0-52.0); LYMPH # 1.4 10*3/uL (1.3-4.4); LYMPH % 27.1 % (27.0-41.0); MEAN CELL VOLUME 93.6 fl (80.0-94.0); MEAN CORPUSCULAR HGB 30.9 pg (27.0-31.0); MEAN CORPUSCULAR HGB CONC 33.1 g/dl (33.0-37.0); MEAN PLATELET VOLUME 10.4 fl (9.6-12.3); MONO # 0.5 10*3/uL (0.1-1.0); MONO % 9.4 % (3.0-9.0); NEUT # 3.3 10*3/uL (2.3-7.9); PLATELET COUNT AUTOMATED 145 10*3/uL (130-400); RED BLOOD COUNT 5.14 10*6/uL (4.50-5.90); RED CELL DISTRI WIDTH 12.3 % (0-14.5); WHITE BLOOD COUNT 5.3 10*3/uL (4.8-10.8)
[2024-03-21 15:29] LABS: ALKALINE PHOSPHATASE 78 U/L (46-116); BUN 10 mg/dl (9-23); CHLORIDE 104 mmol/L (98-107); POTASSIUM 3.6 mmol/L (3.4-5.1); SGPT/ALT 34 U/L (5-49); TOTAL PROTEIN 7.6 gm/dL (6.0-8.0)
== END | disposition home or self-care (01) ==
LOC: LAB 14:34
PROVIDERS: ATTEND Internal Medicine
DX: E53.8 Deficiency of other specified B group vitamins (principal); E08.9 Diabetes mellitus due to underlying condition without complications